=== PATIENT | male | born 1970 | race Caucasian/White ===

== ENCOUNTER → 2017-06-30 | Outpatient (CLI) | payer OTHER | LOC: CAT 14:09 | DX: Z13.6 Encounter for screening for cardiovascular disorders (principal) ==

== ENCOUNTER → 2018-09-16 | Outpatient (CLI) | payer BC | LOC: RAD 10:30 | DX: R05 Cough (principal) ==

== ENCOUNTER 2018-11-20 22:29 | Emergency (ER) | payer BC ==
[~2018-11-20] VITALS: Ht 185.4 cm; Wt 149.7 kg
[2018-11-20] MEDS ORDERED: VALSARTAN40 MG PO (22:41)
[2018-11-20 23:22] LABS: ABSOLUTE NEUTROPHILS 9.8 thou/uL (1.4-8.2); EOSINOPHILS 0.9 % (0.0-3.0); HEMATOCRIT 46.2 % (42.0-52.0); MCH 32.7 pg (26.0-34.0); MCHC 34.7 g/dL (28.0-37.0); MCV 94.3 fL (80.0-100.0); PLATELET COUNT 265 thou/uL (150-400); POLYS 71.1 % (36.0-66.0); RDW 14.4 % (10.5-14.5); WBC 13.8 thou/uL (4.0-11.0)
[2018-11-20 23:29] LABS: CALCIUM 9.5 mg/dL (8.5-10.1); CREATININE 0.9 mg/dL (0.7-1.3); POTASSIUM 3.5 mmol/L (3.5-5.1)
[2018-11-21] MEDS ORDERED: PREDNISONE 20 M20 MG PO (01:46)
[2018-11-21 02:07] VITALS: BP 110/80
--- NOTE | 2018-11-21 19:58 | EKG ---
[address] [address] ELECTROCARDIOGRAM REPORT Name: CIELOHARRISON SUSU Room #: [facility]P [facility] [id number] ������������������ Admission: 11/20/18 ������������������ Attend Phys: Discharge: 11/21/18 ������������������ Date of : 72 Report #: [id number] ����������������������������������������������������������������� [id number] THIS REPORT FOR: //name// [facility] ED Test Date: 2018-11-20 Test Time: 22:55:34 Pat Name: HARRISON BUCK Department: Room: Gender: M Wastewater Manager: michael : 1970 Requested By: Benny Valdivia Order Number: [id number] MD: Alexander Tamayo Measurements Intervals [place] Rate: 102 P: 16 DE: 174 QRS: 15 QRSD: 97 T: 19 QT: 352 QTc: 459 Interpretive Statements Sinus tachycardia left atrial enlargement Early transition Baseline wander Compared to ECG 07/08/2004 14:35:38 Sinus rhythm no longer present Electronically Signed On 11-21-2018 19:58:28 COMMUNICATIONS DEPARTMENT CHAIR by Alexander Tamayo [email or web address] ��������������������������������������������� <ELECTRONICALLY SIGNED> ���������������������������������������� By: Alexander Tamayo MD ��������������������������������������������� 11/21/181957 54 Alexander Tamayo MD /EPI
== END 2018-11-21 02:07 | disposition home or self-care (01) ==
LOC: ER 22:29
PROVIDERS: Emergency Medicine
DX: G44.009 Cluster headache syndrome, unspecified, not intractable (principal); Z88.5 Allergy status to narcotic agent

== ENCOUNTER → 2018-12-17 | Outpatient (CLI) | payer BC ==
[~2018-12-17] MED LIST: PREDNISONE 20 M20 MG PO; VALSARTAN40 MG PO
[2018-12-17 14:03] LABS: ALBUMIN 3.8 g/dL (3.4-5.0); CALCIUM 9.4 mg/dL (8.5-10.1); PHOSPHORUS 3.1 mg/dL (2.5-4.9); POTASSIUM 3.9 mmol/L (3.5-5.1)
== END ==
LOC: MRI 13:21
PROVIDERS: Psychiatry & Neurology Neuromuscular Medicine
DX: R51 Headache (principal)